=== PATIENT | female | born 1970 | race Caucasian/White ===

== ENCOUNTER 2017-01-30 16:32 | Emergency (ER) | payer OTHER ==
[2017-01-30 16:35] VITALS: BP 128/78; PULSE 94; TEMP 98.3; BMI 24.4
--- NOTE | 2017-01-30 16:35 | PDOC ---
Rapid Medical Evaluation Chief Complaint: Sore Throat Time Seen by Provider: 01/30/17 16:33 Medical Evaluation: Allergies Allergy/AdvReac Type Severity Reaction Status Date / Time No Known Allergies Allergy Verified 12/03/14 16:25 01/30/17 16:33 I have performed a brief in person evaluation of this patient. The patient presents with chief complaint of : sore throat fever for 2 days Pertinent PE findings: I have ordered the following: rapid strep The patient will proceed to the ER for further evaluation.
--- NOTE | 2017-01-30 17:42 | PDOC ---
History of Present Illness - General Chief Complaint: Sore Throat Stated Complaint: SORE THROAT Time Seen by Provider: 01/30/17 16:33 History Source: Patient Exam Limitations: No Limitations - History of Present Illness Initial Comments: 01/30/17 19:19 Patient is a 46-year-old female past medical history of hypertension, diabetes, who presents to the emergency department for one week of sore throat, nausea, vomiting. 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 Patient states that approximately 1 week ago she began with the symptoms and fever. Her tmax approximately one week ago was 103F. The fever resolved approximately 2 days ago. She states that now she mostly feels nauseous and has sore throat. Patient last vomited two days ago. Patient denies current fevers, chills, ear pain, cough, rhinorrhea, shortness of breath, chest pain, diarrhea , constipation. Past History - Travel Traveled outside of the country in the last 30 days: No Close contact w/someone who was outside of country & ill: No - Past Medical History Allergies/Adverse Reactions: Allergies Allergy/AdvReac Type Severity Reaction Status Date / Time No Known Allergies Allergy Verified 01/30/17 16:35 Home Medications: Ambulatory Orders Enalapril Maleate 5 mg PO DAILY 08/31/14 Glyburide/Metformin HCl [Glucovance 1.25-250 mg Tablet] 1 each PO BID 08/31/14 Ibuprofen 800 mg PO TID #30 tablet 01/30/17 Ondansetron [Zofran Odt -] 4 mg SL TID #10 od.tablet 01/30/17 COPD: No Diabetes: Yes HTN: Yes Hypercholesterolemia: Yes - Suicide/Smoking/Psychosocial Hx Smoking Status: Yes Smoking History: Current every day smoker Have you smoked in the past 12 months: Yes Number of Cigarettes Smoked Daily: 7 Information on smoking cessation initiated: Yes 'Breaking Loose' booklet given: 01/30/17 Hx Alcohol Use: No Drug/Substance Use Hx: No Substance Use Type: None Review of Systems - Review of Systems Able to Perform ROS?: Yes Comments:: 01/30/17 19:22 CONSTITUTIONAL: Absent: fever, chills, diaphoresis, generalized weakness, malaise, loss of appetite HEENT: Present: throat pain Absent: rhinorrhea, nasal congestion, throat swelling, difficulty swallowing, mouth swelling, ear pain, eye pain, visual Changes CARDIOVASCULAR: Absent: chest pain, loss of consciousness, palpitations, irregular heart rate, peripheral edema RESPIRATORY: Absent: cough, shortness of breath, dyspnea with exertion, orthopnea, wheezing, stridor, hemoptysis GASTROINTESTINAL: Present: nausea, vomiting Absent: abdominal pain, abdominal distension, nausea, vomiting, diarrhea, constipation, melena, hematochezia GENITOURINARY: Absent: dysuria, frequency, urgency, hesitancy, hematuria, flank pain, genital pain MUSCULOSKELETAL: Absent: myalgia, arthralgia, joint swelling SKIN: Absent: rash, itching, pallor HEMATOLOGIC/IMMUNOLOGIC: Absent: easy bleeding, easy bruising, lymphadenopathy, frequent infections ENDOCRINE: Absent: unexplained weight gain, unexplained weight loss, heat intolerance, cold intolerance NEUROLOGIC: Absent: headache, focal weakness or paresthesias, dizziness, unsteady gait, seizure, mental status changes, bladder or bowel incontinence PSYCHIATRIC: Absent: anxiety, depression, suicidal or homicidal ideation, hallucinations. Is the patient limited Malian proficient: No *Physical Exam - Vital Signs Last Vital Signs Temp Pulse Resp BP Pulse Ox 98.3 F 94 H 19 128/78 100 01/30/17 16:33 01/30/17 16:33 01/30/17 16:33 01/30/17 16:33 01/30/17 16:33 - Physical Exam Comments: 01/30/17 19:22 GENERAL: Well developed, well nourished. Awake and alert. No acute distress. HEENT: Normocephalic, atraumatic. PERRLA, EOMI. No conjunctival pallor. Sclera are non- icteric. Moist mucous membranes. Oropharynx is clear. NECK: Supple. Full ROM. No JVD. Carotid pulses 2+ and symmetric, without bruits. No thyromegaly. No lymphadenopathy. CARDIOVASCULAR: Regular rate and rhythm. No murmurs, rubs, or gallops. Distal pulses are 2+ and symmetric. PULMONARY: No evidence of respiratory distress. Lungs clear to auscultation bilaterally. No wheezing, rales or rhonchi. ABDOMINAL: Soft. Non-tender. Non-distended. No rebound or guarding. No organomegaly. Normoactive bowel sounds. MUSCULOSKELETAL Normal range of motion at all joints. No bony deformities or tenderness. No CVA tenderness. EXTREMITIES: No cyanosis. No clubbing. No edema. No calf tenderness. SKIN: Warm and dry. Normal capillary refill. No rashes. No jaundice. NEUROLOGICAL: Alert, awake, appropriate. Cranial nerves 2-12 intact. No deficits to light touch and temperature in face, upper extremities and lower extremities. No motor deficits in the in face, upper extremities and lower extremities. Normoreflexic in the upper and lower extremities. Normal speech. Toes are down- going bilaterally. Gait is normal without ataxia. PSYCHIATRIC: Cooperative. Good eye contact. Appropriate mood and affect. ED Treatment Course - ADDITIONAL ORDERS Additional order review: 01/30/17 16:35 Group A Strep Rapid Antigen - Final Throat Medical Decision Making - Medical Decision Making 01/30/17 19:23 Patient is a 46-year-old female past medical history of hypertension, high blood pressure who presents to the emergency department with 1 week of sore throat, nausea and vomiting. Patient reported having fevers approximately one week. They have since resolved. Given her grouping of symptoms, it seems to be most likely that the patient experienced the flu. Will rule out strep throat at this time. We'll treat with Zofran and ibuprofen. 01/30/17 20:06 Strep test is negative at this time. We'll discharge home with a prescription for Zofran for the nausea. Patient instructed to follow-up with her primary care doctor. *DC/Admit/Observation/Transfer Diagnosis at time of Disposition: Hx of influenza - Discharge Dispostion Disposition: HOME Condition at time of disposition: Good Admit: No - Prescriptions Prescriptions: Ibuprofen 800 mg PO TID #30 tablet Ondansetron [Zofran Odt -] 4 mg SL TID #10 od.tablet - Referrals Referrals: Santi Deal MD [Staff Physician] - - Patient Instructions Printed Discharge Instructions: DI for Influenza -- Adult Additional Instructions: Your strep test was negative today. You most likely had the flu given your symptoms. Symptoms can last up to a week. You were prescribed Zofran. Take one tab every 8 hours as needed for nausea. Please take Motrin 800mg every 8 hours as needed for sore throat or fevers. Drink plenty of fluids and get plenty of rest. Eat a bland diet including toast, plain rice, bananas, apple sauce until your stomach feels better. Follow up with your primary care doctor this week. Return to the ED if you have worsening pain, have difficulty swallowing, shortness of breath, increasing fevers, or any changes in your symptoms. - Post Discharge Activity Forms/Work/School Notes: Back to Work
[2017-01-30] MEDS ORDERED: IBUPROFEN 600 MG TABLET (FP) PO ONE ×2 (17:50→18:13)
[2017-01-30] MEDS ORDERED: ONDANSETRON *ODT* 4 MG TABLET SL ONE (17:50)
[2017-01-30] MEDS ORDERED: ONDANSETRON *ODT* 4 MG TABLET ONE (17:53)
--- NOTE | 2017-02-02 08:30 | PDOC ---
Patient Follow-up (Call Back) - Post ED Follow - Up Condition at time of discharge: Good Disposition at time of original discharge: HOME Reason for Call Back: Abnwl. Microbiology (Patient's throat culture preliminary shows pending organism. Patient was placed underwent discharge. Will wait final report. Throat culture negative for beta hemolytic strep group A.)
== END 2017-01-30 18:44 | disposition home or self-care (01) ==
LOC: JERFT 16:32
DX: J11.1 Influenza due to unidentified influenza virus with other respiratory manifestations (principal); I10 Essential (primary) hypertension; E11.9 Type 2 diabetes mellitus without complications; Z79.84 Long term (current) use of oral hypoglycemic drugs; E78.00 Pure hypercholesterolemia, unspecified
CPT/HCPCS: 87070; 87077; 87430; 99281-25

== ENCOUNTER 2017-12-26 12:59 | Emergency (ER) | payer OTHER ==
[2017-12-26 13:28] VITALS: BP 116/76; PULSE 89; TEMP 98.6; BMI 24.4
--- NOTE | 2017-12-26 14:19 | PDOC ---
History of Present Illness - General Chief Complaint: Chest Pain Stated Complaint: SENT BY PCP Time Seen by Provider: 12/26/17 14:18 - History of Present Illness Initial Comments: 12/26/17 14:30 Ms. Lorenzana is a 47 yo female w/ pmh of HTN, HLD, DM who presents for evaluation on direction of PCP. Patient had routine labs done and received call that potassium was elevated and she needed to present to ER. Patient also endorses 1 day history of chest pain she believes is from lifting heavy things at work. Patient also endorses bilateral upper abdominal pain x1 day. The patient denies shortness of breath, headache and dizziness. Denies fever, chills, nausea, vomit, diarrhea and constipation. Denies dysuria, frequency, urgency and hematuria. Allergies: NKDA Past History - Past Medical History Allergies/Adverse Reactions: Allergies Allergy/AdvReac Type Severity Reaction Status Date / Time No Known Allergies Allergy Verified 12/26/17 13:23 Home Medications: Ambulatory Orders Enalapril Maleate 5 mg PO DAILY 08/31/14 Glyburide/Metformin HCl [Glucovance 1.25-250 mg Tablet] 1 each PO BID 08/31/14 Atorvastatin Ca [Lipitor] 20 mg NR 10/31/17 COPD: No Diabetes: Yes HTN: Yes Hypercholesterolemia: Yes - Suicide/Smoking/Psychosocial Hx Smoking Status: Yes Smoking History: Current every day smoker Have you smoked in the past 12 months: Yes Number of Cigarettes Smoked Daily: 8 Information on smoking cessation initiated: No 'Breaking Loose' booklet given: 01/30/17 Hx Alcohol Use: No Drug/Substance Use Hx: No Substance Use Type: None Review of Systems - Review of Systems Comments:: 12/26/17 14:52 GENERAL/CONSTITUTIONAL: No fever or chills. No weakness. HEAD, EYES, EARS, NOSE AND THROAT: No change in vision. No ear pain or discharge. No sore throat. CARDIOVASCULAR: +Chest pain as described. No shortness of breath RESPIRATORY: No cough, wheezing, or hemoptysis. GASTROINTESTINAL: +Upper abdominal pain. No nausea, vomiting, diarrhea or constipation. GENITOURINARY: No dysuria, frequency, or change in urination. MUSCULOSKELETAL: No joint or muscle swelling or pain. No neck or back pain. SKIN: No rash NEUROLOGIC: No headache, vertigo, loss of consciousness, or change in strength/ sensation. ENDOCRINE: No increased thirst. No abnormal weight change HEMATOLOGIC/LYMPHATIC: No anemia, easy bleeding, or history of blood clots. ALLERGIC/IMMUNOLOGIC: No hives or skin allergy. *Physical Exam - Vital Signs Last Vital Signs Temp Pulse Resp BP Pulse Ox 98.6 F 89 18 116/76 98 12/26/17 13:23 12/26/17 13:23 12/26/17 13:23 12/26/17 13:23 12/26/17 13:23 - Physical Exam Comments: 12/26/17 14:56 GENERAL: Awake, alert, and fully oriented, in no acute distress HEAD: No signs of trauma, normocephalic, atraumatic EYES: PERRLA, EOMI, sclera anicteric, conjunctiva clear ENT: Auricles normal inspection, hearing grossly normal, nares patent, oropharynx clear without exudates. Moist mucosa NECK: Normal ROM, supple, no lymphadenopathy, JVD, or masses LUNGS: +Reproducible TTP on left chest. No distress, speaks full sentences, clear to auscultation bilaterally HEART: Regular rate and rhythm, normal S1 and S2, no murmurs, rubs or gallops, peripheral pulses normal and equal bilaterally. ABDOMEN: +VETO upper abdoinal TTP. Soft, normoactive bowel sounds. No guarding, no rebound. No masses EXTREMITIES: Normal inspection, Normal range of motion, no edema. No clubbing or cyanosis. NEUROLOGICAL: Cranial nerves II through XII grossly intact. Normal speech, normal gait, no focal sensorimotor deficits SKIN: Warm, Dry, normal turgor, no rashes or lesions noted. ED Treatment Course - LABORATORY CBC & Chemistry Diagram: 12/26/17 14:33 12/26/17 14:33 Medical Decision Making - Medical Decision Making 12/26/17 16:50 Ms. Lorenzana is a 47 yo female w/ pmh as described who presents for evaluation of hyperkalemia noted on routine labs with additional abdominal/chest pain. Patient repeat labs as below significant for normal potassium values. Patient reporting generalized relief from symptoms following pepcid/fluids. Patient US grossly normal; dilated CBD noted. Patient given GI follow-up and will return if any return of symptoms. Discharging to home. Laboratory Results - last 24 hr 12/26/17 12/26/17 12/26/17 14:33 14:33 14:33 WBC 12.6 H RBC 4.81 Hgb 14.6 Hct 44.6 MCV 92.7 MCH 30.4 MCHC 32.8 RDW 13.5 Plt Count 270 D MPV 9.6 Absolute Neuts (auto) 5.7 Neutrophils % 45.4 D Lymphocytes % 45.8 H D Monocytes % 6.0 Eosinophils % 1.8 D Basophils % 1.0 D Nucleated RBC % 0 Sodium 136 Potassium 4.2 Chloride 103 Carbon Dioxide 26 Anion Gap 7 L BUN 14 Creatinine 0.6 Creat Clearance w eGFR > 60 Random Glucose 182 H Calcium 9.1 Total Bilirubin 0.2 AST 13 L ALT 18 Alkaline Phosphatase 89 Creatine Kinase 74 Troponin I < 0.02 Total Protein 7.9 Albumin 3.8 Lipase Beta HCG, Quant 1.7 12/26/17 14:33 WBC RBC Hgb Hct MCV MCH MCHC RDW Plt Count MPV Absolute Neuts (auto) Neutrophils % Lymphocytes % Monocytes % Eosinophils % Basophils % Nucleated RBC % Sodium Potassium Chloride Carbon Dioxide Anion Gap BUN Creatinine Creat Clearance w eGFR Random Glucose Calcium Total Bilirubin AST ALT Alkaline Phosphatase Creatine Kinase Troponin I Total Protein Albumin Lipase 151 Beta HCG, Quant *DC/Admit/Observation/Transfer Diagnosis at time of Disposition: Abdominal pain Qualifiers: Abdominal location: epigastric Qualified Code(s): R10.13 - Epigastric pain Chest pain Qualifiers: Chest pain type: unspecified Qualified Code(s): R07.9 - Chest pain, unspecified - Discharge Dispostion Disposition: HOME - Referrals Referrals: Robert Mace MD [Primary Care Provider] - Kristopher Liu DO [Staff Physician] - - Patient Instructions Printed Discharge Instructions: DI for Atypical Chest Pain Additional Instructions: You were evaluated today in the ER for your noted elevated potassium on routine labs as well as your chest and abdominal pain. Your potassium levels were within normal limits and non-concerning. Your labs were normal and you reported your symptoms improved with pepcid medication. A dilated common bile duct was noted on ultrasound and we have given you gastroenterology follow-up for further evaluation. Please follow-up as able and return to ER if any return of pain, fever, chills, or other concerning symptoms. - Post Discharge Activity
[2017-12-26] MEDS ORDERED: FAMOTIDINE 20 MG/50 ML IVPB 20 MG/50 ML MG IVPB ONE ×2 (14:28→14:48)
[2017-12-26] MEDS ORDERED: SODIUM CHLORIDE 1,000 ML IV STA (14:28)
[2017-12-26 14:41] LABS: EOS % 1.8 % (0-4.5); HEMATOCRIT 44.6 % (32.4-45.2); HEMOGLOBIN 14.6 GM/dL (10.7-15.3); LYMPH % 45.8 % (8-40); MCH 30.4 pg (25.7-33.7); MCHC 32.8 g/dl (32.0-36.0); MEAN CELL VOLUME 92.7 fl (80-96); MEAN PLT VOLUME 9.6 fl (7.5-11.1); NEUT % 45.4 % (42.8-82.8); PLATELET COUNT 270 K/MM3 (134-434); RBC 4.81 M/mm3 (3.60-5.2); RDW 13.5 % (11.6-15.6); WHITE BLOOD COUNT 12.6 K/mm3 (4.0-10.0)
[2017-12-26 15:20] LABS: ALBUMIN 3.8 g/dl (3.4-5.0); ALK PHOS 89 U/L (45-117); ANION GAP 7 MMOL/L (8-16); BILIRUBIN,TOTAL 0.2 mg/dL (0.2-1); BLOOD UREA NITROGEN 14 mg/dL (7-18); CALCIUM 9.1 mg/dL (8.5-10.1); CHLORIDE 103 mmol/L (98-107); CO2 26 mmol/L (21-32); CREATININE 0.6 mg/dL (0.55-1.3); GLUCOSE,RANDOM 182 mg/dL (74-106); POTASSIUM 4.2 mmol/L (3.5-5.1); SGOT/AST 13 U/L (15-37); SGPT/ALT 18 U/L (13-61); SODIUM 136 mmol/L (136-145); TOT PROT 7.9 g/dl (6.4-8.2)
--- NOTE | 2017-12-26 16:31 | PDOC ---
Attending Attestation - Resident Resident Name: Rigo Marsh - ED Attending Attestation I have performed the following: I have examined & evaluated the patient, The case was reviewed & discussed with the resident, I agree w/resident's findings & plan - HPI HPI: 12/26/17 16:29 47-year-old female referred here for incidental finding of hyperkalemia on routine outpatient testing presents for evaluation. Patient was asymptomatic, but upon arrival noted intermittent epigastric pain since last night, radiating to the right upper quadrant, not associated with any nausea/vomiting/diarrhea/melena/bright red blood per rectum. No history of gallstones, has required antacids in the past, never had endoscopy. No excessive NSAID/alcohol use. - Physicial Exam PE: 12/26/17 16:30 Vital signs normal Well-appearing, no jaundice or pallor Heart is regular, lungs are clear, no ectopy noted Abdomen is soft/nondistended. Epigastric and right upper quadrant discomfort to palpation without guarding or rebound, no CVA tenderness No rash - Medical Decision Making 12/26/17 16:30 47-year-old female here primarily for incidental finding of hyperkalemia on routine labs, now with epigastric discomfort that began last night. Repeat chemistries shows normal potassium of 4.2, normal creatinine Differential for abdominal pain includes gastritis, pancreatitis, biliary pathology. Labs are within normal limits including white blood cell count and lipase, LFTs are also normal. Ultrasound shows no gallstones or gallbladder abnormality except for dilated CBD. Question gastritis, treat with antacids, will need GI referral for the CBD dilatation.
--- NOTE | 2017-12-27 15:19 | EKG ---
Test Reason : Blood Pressure : / mmHG Vent. Rate : 089 BPM Atrial Rate : 089 BPM P-R Int : 142 ms QRS Dur : 094 ms QT Int : 370 ms P-R-T Axes : 049 048 046 degrees QTc Int : 450 ms NORMAL SINUS RHYTHM POSSIBLE LEFT ATRIAL ENLARGEMENT BORDERLINE ECG WHEN COMPARED WITH ECG OF 09-JUN-2010 11:59, QT HAS LENGTHENED Confirmed by NOÉ GOLDSMITH, CATHY ([id number]) on 12/27/2017 3:18:54 PM Referred By: Confirmed By:CATHY UMANZOR MD
== END 2017-12-26 16:59 | disposition home or self-care (01) ==
LOC: JER 12:59
PROC: 3E033GC Introduction of Other Therapeutic Substance into Peripheral Vein, Percutaneous Approach (ICD-10-PCS; principal; 2017-12-26)
DX: R07.9 Chest pain, unspecified (principal); R10.13 Epigastric pain
CPT/HCPCS: 36415; 76700-TC; 80053; 82550; 83690; 84484; 84702; 85025; 93005; 93010; 96365; 99283-25; J7030

== ENCOUNTER 2018-06-21 16:52 | Emergency (ER) | payer OTHER ==
[2018-06-21 17:15] VITALS: BP 110/68; PULSE 94; TEMP 98.2; BMI 24.7
--- NOTE | 2018-06-21 18:20 | PDOC ---
History of Present Illness - General Chief Complaint: Pain, Acute Stated Complaint: KNEE PAIN Time Seen by Provider: 06/21/18 17:59 History Source: Patient - History of Present Illness Initial Comments: 06/21/18 19:36 48 year old female c/o right knee pain x 2 days. reports moving boxes. denies trauma and injury. denies fever/ chills swelling to the KNee. Past History - Past Medical History Allergies/Adverse Reactions: Allergies Allergy/AdvReac Type Severity Reaction Status Date / Time No Known Allergies Allergy Verified 12/26/17 13:23 Home Medications: Ambulatory Orders Enalapril Maleate 5 mg PO DAILY 08/31/14 Glyburide/Metformin HCl [Glucovance 1.25-250 mg Tablet] 1 each PO BID 08/31/14 Atorvastatin Ca [Lipitor] 20 mg NR 10/31/17 Tramadol HCl 50 mg PO BID PRN #6 tablet MDD 2 06/21/18 COPD: No Diabetes: Yes HTN: Yes Hypercholesterolemia: Yes - Immunization History Immunization Up to Date: No - Suicide/Smoking/Psychosocial Hx Smoking Status: Yes Smoking History: Current every day smoker Have you smoked in the past 12 months: Yes Number of Cigarettes Smoked Daily: 10 Information on smoking cessation initiated: No 'Breaking Loose' booklet given: 01/30/17 Hx Alcohol Use: No Drug/Substance Use Hx: No Substance Use Type: None Review of Systems - Review of Systems Able to Perform ROS?: Yes Is the patient limited Paraguayan proficient: No Constitutional: No: Symptoms Reported, See HPI, Chills, Diaphoresis, Fever, Loss of Appetite, Malaise, Night Sweats, Weakness, Weight Stable, Unintentional Wgt. Loss, Unexplained wgt Loss, Other Musculoskeletal: Yes: Other (knee pain) *Physical Exam - Vital Signs Last Vital Signs Temp Pulse Resp BP Pulse Ox 98.2 F 94 H 16 110/68 98 06/21/18 17:11 06/21/18 17:11 06/21/18 17:11 06/21/18 17:11 06/21/18 17:11 - Physical Exam General Appearance: Yes: Appropriately Dressed Extremity: positive: Normal Capillary Refill, Normal Inspection, Normal Range of Motion, Other (able to leg raise) Integumentary: positive: Normal Color, Dry, Warm Neurologic: positive: Fully Oriented, Alert, Normal Mood/Affect Progress Note - Progress Note Progress Note: A: right knee pain P: xray: no fracture no acute finding tylenol *DC/Admit/Observation/Transfer Diagnosis at time of Disposition: Knee pain, right Qualifiers: Chronicity: acute Qualified Code(s): M25.561 - Pain in right knee - Discharge Dispostion Disposition: HOME Condition at time of disposition: Stable - Prescriptions Prescriptions: Tramadol HCl 50 mg PO BID PRN #6 tablet MDD 2 PRN Reason: Pain - Referrals Referrals: Robert Mace MD [Primary Care Provider] - Paco Rivera MD [Staff Physician] - Call tomorrow - Patient Instructions Printed Discharge Instructions: DI for Knee Pain Additional Instructions: you may take tylenol every 6 hours as needed for pain. - Post Discharge Activity Forms/Work/School Notes: Back to Work
[2018-06-21] MEDS ORDERED: ACETAMINOPHEN 500 MG TABLET (FP) PO ONE (18:23)
[2018-06-21] MEDS ORDERED: ACETAMINOPHEN 325 MG TABLET (FP) ONE (18:28)
== END 2018-06-21 19:45 | disposition home or self-care (01) ==
LOC: JERFT 16:52
DX: M25.561 Pain in right knee (principal); I10 Essential (primary) hypertension; E11.9 Type 2 diabetes mellitus without complications; Z79.84 Long term (current) use of oral hypoglycemic drugs; E78.00 Pure hypercholesterolemia, unspecified
CPT/HCPCS: 73562-TC-RT-FY; 99281-25

== ENCOUNTER 2019-03-07 13:57 | Emergency (ER) | payer OTHER ==
[2019-03-07 14:10] VITALS: BMI 24.6
--- NOTE | 2019-03-07 14:19 | PDOC ---
Rapid Medical Evaluation Chief Complaint: Pain Time Seen by Provider: 03/07/19 14:10 Medical Evaluation: Allergies Allergy/AdvReac Type Severity Reaction Status Date / Time No Known Allergies Allergy Verified 03/07/19 14:11 Vital Signs Temp Pulse Resp BP Pulse Ox 98 F 90 18 133/67 99 03/07/19 14:06 03/07/19 14:06 03/07/19 14:06 03/07/19 14:06 03/07/19 14:06 03/07/19 14:17 I have performed a brief in-person evaluation of this patient. The patient presents with a chief complaint of: RT flank and lower back pain x 1 week. Denies any urinary symptoms. Denies N/V, fever, chills. pt did not take anything for symptoms Pertinent physical exam findings: A&O x 3 in NAD I have ordered the following: UA, Ucx, hcg The patient will proceed to the ED for further evaluation. Discharge Disposition - Diagnosis Right flank pain - Discharge Dispostion Condition at time of disposition: Stable - Referrals - Patient Instructions - Post Discharge Activity
--- NOTE | 2019-03-07 16:45 | PDOC ---
History of Present Illness - General Chief Complaint: Pain Stated Complaint: RT SIDE PAIN Time Seen by Provider: 03/07/19 14:10 History Source: Patient - History of Present Illness Initial Comments: 03/07/19 16:47 48 year old female c/o right flank pain/ rib pain worse with movement for 1 week. patient reports pain is worse with movement ( sitting and laying) denies pleurisy, cough, URI, chest pain, abdominal pain, NVD, fever/ chills. denies hematuria, urinary symptoms. patient reports that she does heavy lifting at work. unsure of trauma/ injury. denies falls Dr. Knight: GI PMHX: hypertension, diabetes, hypercholestremia, 03/07/19 16:56 Timing/Duration: reports: intermittent Quality: reports: moderate Past History - Past Medical History Allergies/Adverse Reactions: Allergies Allergy/AdvReac Type Severity Reaction Status Date / Time No Known Allergies Allergy Verified 03/07/19 14:11 Home Medications: Ambulatory Orders Enalapril Maleate 5 mg PO DAILY 08/31/14 Glyburide/Metformin HCl [Glucovance 1.25-250 mg Tablet] 1 each PO BID 08/31/14 Atorvastatin Ca [Lipitor] 20 mg NR DAILY 10/31/17 Tramadol HCl 50 mg PO BID PRN #6 tablet MDD 2 06/21/18 Cyclobenzaprine HCl [Flexeril -] 10 mg PO TID PRN #10 tablet 03/07/19 Ibuprofen 600 mg PO QID PRN #20 tablet 03/07/19 Lidocaine 5% Patch [Lidoderm -] 1 patch TP DAILY PRN #7 patch 03/07/19 COPD: No Diabetes: Yes HTN: Yes Hypercholesterolemia: Yes - Immunization History Immunization Up to Date: No - Psycho Social/Smoking Cessation Hx Smoking Status: Yes Smoking History: Current every day smoker Have you smoked in the past 12 months: Yes Number of Cigarettes Smoked Daily: 10 Information on smoking cessation initiated: No 'Breaking Loose' booklet given: 01/30/17 Hx Alcohol Use: No Drug/Substance Use Hx: No Substance Use Type: None Review of Systems - Review of Systems Able to Perform ROS?: Yes Is the patient limited [place] Citizen proficient: No *Physical Exam - Vital Signs Last Vital Signs Temp Pulse Resp BP Pulse Ox 98 F 90 18 133/67 99 03/07/19 14:06 03/07/19 14:06 03/07/19 14:06 03/07/19 14:06 03/07/19 14:06 - Physical Exam General Appearance: Yes: Appropriately Dressed Respiratory/Chest: positive: Lungs Clear, Normal Breath Sounds, Other (right posterior rib tenderness, pain is also worse with movement) Cardiovascular: positive: Regular Rhythm, Regular Rate Gastrointestinal/Abdominal: positive: Normal Bowel Sounds, Soft, Other (no abdominal pain). negative: Tender Musculoskeletal: positive: Normal Inspection, Muscle Spasm. negative: CVA Tenderness Extremity: positive: Normal Capillary Refill, Normal Inspection, Normal Range of Motion Integumentary: positive: Normal Color, Dry, Warm Neurologic: positive: Fully Oriented, Alert ED Progress Note - Progress Note Progress Note: 03/07/19 19:26 A: rib pain musculoskeletal pain P: xray: no acute fracture NSaids lidocainbe patch Discharge - Discharge Information Problems reviewed: Yes Clinical Impression/Diagnosis: Rib pain on right side Condition: Stable Disposition: HOME - Additional Discharge Information Prescriptions: Cyclobenzaprine HCl [Flexeril -] 10 mg PO TID PRN #10 tablet PRN Reason: Back Pain Ibuprofen 600 mg PO QID PRN #20 tablet PRN Reason: Back Pain Lidocaine 5% Patch [Lidoderm -] 1 patch TP DAILY PRN #7 patch PRN Reason: Back Pain - Follow up/Referral Referrals: Robert Mace MD [Primary Care Provider] - - Patient Discharge Instructions Patient Printed Discharge Instructions: DI for Musculoskeletal Pain Additional Instructions: Do light stretches Apply ice to the area for the first 24 hours. Then alternate with ice and heat after. Take ibuprofen every 6 hours as needed for pain. Take Flexeril as prescribed for muscle spasm. Flexeril can make you sleepy, do not drive or operate heavy machinery after taking the medication. Use lidocaine patch as prescribed Return to the emergency room for any worsening symptoms. - Post Discharge Activity Work/Back to School Note: Back to Work
[2019-03-07 17:21] LABS: URINE APPEARANCE CLEAR; URINE BILIRUBIN NEGATIVE (NEGATIVE); URINE COLOR YELLOW; URINE GLUCOSE (UA) 3+ (NEGATIVE); URINE KETONE TRACE (NEGATIVE); URINE LEUK ESTERASE NEGATIVE (NEGATIVE); URINE NITRITE NEGATIVE (NEGATIVE); URINE PROTEIN NEGATIVE (NEGATIVE); URINE UROBILINOGEN 0.2 mg/dL (0.2-1.0)
[2019-03-07] MEDS ORDERED: KETOROLAC TROMETHAMINE 30 MG/1 ML VIAL IM ONE (18:15)
[2019-03-07] MEDS ORDERED: KETOROLAC TROMETHAMINE 30 MG/1 ML VIAL ONE ×2 (19:14→19:38)
[2019-03-07] MEDS ORDERED: LIDOCAINE 5% TOPICAL PATCH TP ONE (19:26)
[2019-03-07] MEDS ORDERED: LIDOCAINE 5% TOPICAL PATCH ONE (19:38)
[2019-03-07 19:49] VITALS: BP 116/77; PULSE 88; TEMP 98.6
[2019-03-07] MEDS ORDERED: LIDOCAINE PATCH REMOVAL MC SCH (22:00)
== END 2019-03-07 19:48 | disposition home or self-care (01) ==
LOC: JER 13:57
DX: R07.81 Pleurodynia (principal); I10 Essential (primary) hypertension; E78.00 Pure hypercholesterolemia, unspecified; E11.9 Type 2 diabetes mellitus without complications; Z79.84 Long term (current) use of oral hypoglycemic drugs; F17.210 Nicotine dependence, cigarettes, uncomplicated
CPT/HCPCS: 71046-TC-FY; 71101-TC-RT-FY; 81003; 82962; 87086; 99283-25

== ENCOUNTER 2019-05-11 20:31 | Emergency (ER) | payer OTHER ==
[2019-05-11 20:39] VITALS: BMI 24.6
[2019-05-11] MEDS ORDERED: ACETAMINOPHEN 325 MG TABLET (FP) PO ONE (20:47)
[2019-05-11] MEDS ORDERED: ACETAMINOPHEN 325 MG TABLET (FP) ONE (20:48)
[2019-05-11] MEDS ORDERED: IBUPROFEN 600 MG TABLET (FP) PO ONE ×2 (20:59→21:05)
--- NOTE | 2019-05-11 20:59 | PDOC ---
History of Present Illness - General Chief Complaint: Cold Symptoms Stated Complaint: FEVER COLD SYMPTOMS Time Seen by Provider: 05/11/19 20:49 History Source: Patient Exam Limitations: No Limitations Past History - Past Medical History Allergies/Adverse Reactions: Allergies Allergy/AdvReac Type Severity Reaction Status Date / Time No Known Allergies Allergy Verified 05/11/19 20:35 Home Medications: Ambulatory Orders Enalapril Maleate 5 mg PO DAILY 08/31/14 Glyburide/Metformin HCl [Glucovance 1.25-250 mg Tablet] 1 each PO BID 08/31/14 Atorvastatin Ca [Lipitor] 20 mg NR DAILY 10/31/17 Tramadol HCl 50 mg PO BID PRN #6 tablet MDD 2 06/21/18 Cyclobenzaprine HCl [Flexeril -] 10 mg PO TID PRN #10 tablet 03/07/19 Ibuprofen 600 mg PO QID PRN #20 tablet 03/07/19 Lidocaine 5% Patch [Lidoderm -] 1 patch TP DAILY PRN #7 patch 03/07/19 COPD: No Diabetes: Yes HTN: Yes Hypercholesterolemia: Yes - Immunization History Immunization Up to Date: No - Psycho Social/Smoking Cessation Hx Smoking Status: Yes Smoking History: Never smoked Have you smoked in the past 12 months: Yes Number of Cigarettes Smoked Daily: 10 'Breaking Loose' booklet given: 01/30/17 Hx Alcohol Use: No Drug/Substance Use Hx: No Substance Use Type: None *Physical Exam - Vital Signs Last Vital Signs Temp Pulse Resp BP Pulse Ox 103.2 F H 122 H 18 108/75 97 05/11/19 20:35 05/11/19 20:35 05/11/19 20:35 05/11/19 20:35 05/11/19 20:35 - Physical Exam General Appearance: No: Apparent Distress HEENT: positive: Normal Voice, Pharynx Normal, Nasal Congestion, Rhinorrhea. negative: Muffled/Hoarse voice, Tonsillar Exudate, Tonsillar Erythema Respiratory/Chest: positive: Lungs Clear, Normal Breath Sounds. negative: Respiratory Distress Cardiovascular: positive: Tachycardia. negative: Murmur Gastrointestinal/Abdominal: positive: Soft. negative: Tender Integumentary: positive: Normal Color Neurologic: positive: Alert ED Treatment Course - RADIOLOGY Radiology Studies Ordered: Category Date Time Status CHEST PA & LAT [RAD] Stat Radiology 03/07/20 20:55 Ordered - Medications Given in the ED: ED Medications Discontinued Medications Generic Name Dose Route Start Last Admin Trade Name Mami PRN Reason Stop Dose Admin Acetaminophen 975 mg 05/11/19 20:47 05/11/19 20:49 Tylenol - PO 05/11/19 20:48 975 mg ONCE ONE Administration Medical Decision Making - Medical Decision Making 49 y/o F hx of HTN, HLD, DM presents with fever x 2 days along with productive cough, rhinorrhea, congestion, body aches and chills. Took Nyquil for symptoms. Denies recent travel, possible sick contact exposure, sob, cp, abd pain, n/v/d, urinary sxs. Plan: CXR to r/o pneumonia Influenza swab Tylenol for fever 05/11/19 20:57 CXR negative for pneumonia Pending results of flu swab 05/11/19 21:11 Flu swab negative Fever going down (repeat temp 99.9) Patient feeling better Likely viral syndrome 05/11/19 21:47 Discharge - Discharge Information Problems reviewed: Yes Clinical Impression/Diagnosis: Viral URI Condition: Stable Disposition: HOME - Admission No - Additional Discharge Information Prescription Drug Monitoring Program (I-STOP) results: I-STOP not reviewed - Follow up/Referral Referrals: Robert Mace MD [Primary Care Provider] - 2 Days - Patient Discharge Instructions Patient Printed Discharge Instructions: DI for Viral Upper Respiratory Infection -- Adult Additional Instructions: Thank you for choosing [facility]. It was a pleasure taking care of you. You have viral infection Alternate between Tylenol every 4 and Motrin every 6 hours as needed for fever Recommend rest and hydration Follow-up with your doctor in 2 days Return to the Emergency Department if your symptoms worsen or persist or have other concerning symptoms. - Post Discharge Activity
[2019-05-11 21:44] VITALS: BP 122/81; PULSE 113
[2019-05-11 21:54] VITALS: TEMP 99.9
== END 2019-05-11 21:59 | disposition home or self-care (01) ==
LOC: JERFT 20:31
DX: J06.9 Acute upper respiratory infection, unspecified (principal); B97.89 Other viral agents as the cause of diseases classified elsewhere; I10 Essential (primary) hypertension; E78.00 Pure hypercholesterolemia, unspecified; E11.9 Type 2 diabetes mellitus without complications; Z79.84 Long term (current) use of oral hypoglycemic drugs
CPT/HCPCS: 71046-TC-FY; 87804; 99283-25

== ENCOUNTER 2020-01-22 09:32 | Emergency (ER) | payer OTHER ==
[2020-01-22 09:44] VITALS: BP 138/84; PULSE 94; TEMP 98.6; BMI 23.4
[2020-01-22] MEDS ORDERED: ACETAMINOPHEN 500 MG TABLET (FP) PO ONE (10:56)
[2020-01-22] MEDS ORDERED: ACETAMINOPHEN 500 MG TABLET (FP) ONE (11:15)
[2020-01-22] MEDS ORDERED: CODEINE SO4 30 MG TABLET PO ONE (11:49)
[2020-01-22] MEDS ORDERED: oxyCODONE HCL 5 MG TABLET PO ONE (11:53)
[2020-01-22] MEDS ORDERED: oxyCODONE HCL 5 MG TABLET ONE (11:54)
== END 2020-01-22 11:57 | disposition home or self-care (01) ==
LOC: JERFT 09:32
DX: L03.113 Cellulitis of right upper limb (principal)
CPT/HCPCS: 73110-TC-RT-FY; 73130-TC-RT-FY; 99284-25

== ENCOUNTER 2023-04-10 14:22 | Emergency (ER) | payer OTHER ==
[2023-04-10 15:12] VITALS: RESP 18; TEMP 98; BMI 24.4
[2023-04-10] MEDS ORDERED: ACETAMINOPHEN 500 MG TABLET (FP) ONE (17:44)
[2023-04-10 20:06] LABS: BASO % 0.5 % (0-2.0); EOS % 1.3 % (0-4.5); HEMATOCRIT 38.5 % (32.4-45.2); HEMOGLOBIN 12.7 GM/dL (10.7-15.3); LYMPH % 39.9 % (8-40); MCH 30.3 pg (25.7-33.7); MEAN CELL VOLUME 91.9 fl (80-96); MONO % 7.3 % (3.8-10.2); PLATELET COUNT 311 10^3/uL (134-434); RBC 4.19 M/mm3 (3.60-5.2); RDW 13.7 % (11.6-15.6); WHITE BLOOD COUNT 16.3 K/mm3 (4.0-10.0)
[2023-04-10 22:51] VITALS: BP 138/70; PULSE 88
[2023-04-10 22:56] LABS: BLOOD UREA NITROGEN 15.7 mg/dL (7-18); CREATININE 0.8 mg/dL (0.55-1.3); POTASSIUM 4.7 mmol/L (3.5-5.1)
[2023-04-10 22:57] LABS: ALBUMIN 3.7 g/dl (3.4-5.0); BILIRUBIN,TOTAL 0.4 mg/dL (0.2-1); CALCIUM 10.1 mg/dL (8.5-10.1); TOT PROT 7.9 g/dl (6.4-8.2)
[2023-04-11] MEDS: KETOROLAC TROMETHAMINE 15 MG/ML VIAL IVPUSH ONE (01:14)
[2023-04-11] MEDS ORDERED: KETOROLAC TROMETHAMINE 15 MG/ML VIAL ONE (01:16)
== END 2023-04-11 01:21 | disposition home or self-care (01) ==
LOC: JER 14:22
PROC: 3E0333Z Introduction of Anti-inflammatory into Peripheral Vein, Percutaneous Approach (ICD-10-PCS; principal; 2023-04-11)
DX: M54.9 Dorsalgia, unspecified (principal)
CPT/HCPCS: 36415; 71046-TC-FY; 71275-TC; 80053; 85025; 85379; 93005; 93010; 96374; 99285-25; Q9967

== ENCOUNTER 2023-10-07 20:43 | Emergency (ER) | payer OTHER ==
[2023-10-07 20:55] VITALS: BP 120/75; PULSE 100; RESP 20; TEMP 97.7; BMI 21.6
[2023-10-07] MEDS: diphenhydrAMINE HCL 25 MG CAPSULE (FP) PO ONE (21:29)
[2023-10-07] MEDS ORDERED: diphenhydrAMINE HCL 25 MG CAPSULE (FP) PO ONE (21:30)
== END 2023-10-07 21:39 | disposition home or self-care (01) ==
LOC: JERFT 20:43
DX: L50.9 Urticaria, unspecified (principal)
CPT/HCPCS: 99283-25